=== PATIENT | female | born 1945 | race Caucasian/White ===

== ENCOUNTER 2021-06-19 12:47 | Inpatient (IN) | payer MEDICARE, BC ==
[2021-06-19] MEDS ORDERED: ONDANSETRON 4 MG/2 ML VIAL IVP STA (12:59)
[2021-06-19] MEDS ORDERED: HYDROmorphone 0.5 MG/0.5 ML SYRINGE IVP STA (12:59)
--- NOTE | 2021-06-19 14:01 | XR ---
EXAMINATION TYPE: XR chest 1V DATE OF EXAM: 06/19/2021 COMPARISON: NONE HISTORY: Pain after fall injury. TECHNIQUE: Single frontal view of the chest is obtained. FINDINGS: There is some chronic parenchymal change without suspicious focal air space opacity, pleur al effusion, or pneumothorax seen. The cardiac silhouette size is within normal limits. Overlying b ra strap. The osseous structures are intact. IMPRESSION: No acute process.
--- NOTE | 2021-06-19 14:08 | XR ---
EXAMINATION TYPE: XR Hip LT and AP Pelvis DATE OF EXAM: 06/19/2021 COMPARISON: NONE HISTORY: Trauma and pain TECHNIQUE: A single AP view of the pelvis is obtained. Two views of the left hip are obtained. FINDINGS: There is subcapital left femoral neck fracture suspected, there is foreshortening of the p roximal left femur on the frontal view, resulting varus deformity. No evident dislocation. IMPRESSION: Left hip fracture
[2021-06-19] MEDS ORDERED: NALOXONE 0.4 MG/ML 1 ML VIAL IV PRN (14:15)
[2021-06-19] MEDS ORDERED: ONDANSETRON 4 MG/2 ML VIAL IVP PRN (14:15)
--- NOTE | 2021-06-19 14:15 | ED ---
Fall HPI - General Chief Complaint: Fall Stated Complaint: Fall, hip injury Time Seen by Provider: 06/19/21 12:48 Source: patient, EMS, RN notes reviewed Mode of arrival: EMS Limitations: physical limitation - History of Present Illness Initial Comments: 75-year-old female presents emergency Department with chief complaint of left hip pain. Patient states she is going up steps slipped on the last step falling onto her left side. Patient went to left hip pain no head injury no loss conscious. Patient does not take any daily medications. Patient no loss conscious. Patient states that she is unable to bear weight on her left leg. Patient was given Toradol by EMS prior to arrival. - Related Data Allergies Allergy/AdvReac Type Severity Reaction Status Date / Time gentamicin Allergy Rash/Hives Verified 06/19/21 13:02 vancomycin Allergy Rash/Hives Verified 06/19/21 13:02 Review of Systems ROS Statement: Those systems with pertinent positive or pertinent negative responses have been documented in the HPI. ROS Other: All systems not noted in ROS Statement are negative. Past Medical History Past Medical History: Osteoarthritis (OA) Additional Past Medical History / Comment(s): Covid + 06/14/21 Past Surgical History: Appendectomy, Cholecystectomy, Hysterectomy Past Psychological History: No Psychological Hx Reported Smoking Status: Never smoker Past Alcohol Use History: None Reported Past Drug Use History: None Reported General Exam Limitations: no limitations General appearance: alert, in no apparent distress Head exam: Present: atraumatic, normocephalic, normal inspection Eye exam: Present: normal appearance, PERRL, EOMI. Absent: scleral icterus, conjunctival injection, periorbital swelling Respiratory exam: Present: normal lung sounds bilaterally. Absent: respiratory distress, wheezes, rales, rhonchi, stridor Cardiovascular Exam: Present: regular rate, normal rhythm, normal heart sounds. Absent: systolic murmur, diastolic murmur, rubs, gallop, clicks Extremities exam: Present: other (Left hip tenderness, tenderness ,pulses intact, external rotation shortening noted) Course Vital Signs 06/19/21 12:57 Temperature 98 F Pulse Rate 64 Respiratory 16 Rate Blood Pressure 202/86 O2 Sat by Pulse 99 Oximetry Medical Decision Making - Medical Decision Making X-ray shows evidence of left fracture patient will be admitted to Dr. Enriquez. surgical clearance was ordered. Disposition Clinical Impression: Fall, Subcapital fracture of left femur Disposition: ADMITTED IP TO THIS HOSP Condition: Fair Referrals: Francoise Whitlock MD [Primary Care Provider] - 1-2 days
[2021-06-19 15:20] LABS: Basophils % (A) 0 %; Eosinophils % (A) 0 %; HCT 44.2 % (34.0-46.0); HGB 14.2 gm/dL (11.4-16.0); Lymphocytes # (A) 0.8 k/uL (1.0-4.8); Lymphocytes % (A) 9 %; MCH 28.8 pg (25.0-35.0); MCHC 32.1 g/dL (31.0-37.0); MCV 89.8 fL (80.0-100.0); Mean Platelet Volume 9.5; Monocytes # (A) 0.4 k/uL (0-1.0); Monocytes % (A) 4 %; Neutrophils # (A) 8.3 k/uL (1.3-7.7); Neutrophils % (A) 87 %; Platelet Count 172 k/uL (150-450); RBC 4.92 m/uL (3.80-5.40); RDW 13.5 % (11.5-15.5); WBC 9.5 k/uL (3.8-10.6)
[2021-06-19 15:31] LABS: ALT 22 U/L (4-34); AST 31 U/L (14-36); African American GFR (CKD) >90 (>60 ml/min/1.73 sqM); Albumin 4.4 g/dL (3.5-5.0); Alkaline Phosphatase 131 U/L (38-126); Anion Gap 9 mmol/L; Blood Urea Nitrogen 16 mg/dL (7-17); Calcium 9.8 mg/dL (8.4-10.2); Carbon Dioxide 24 mmol/L (22-30); Chloride 104 mmol/L (98-107); Glucose 118 mg/dL (74-99); Non-African American GFR(CKD) >90 (>60 ml/min/1.73 sqM); Potassium 4.1 mmol/L (3.5-5.1); Sodium 137 mmol/L (137-145); Total Bilirubin 0.4 mg/dL (0.2-1.3); Total Protein 6.8 g/dL (6.3-8.2)
[2021-06-19 15:36] LABS: INR 0.9 (<1.2); Partial Thromboplastin Time 21.3 sec (22.0-30.0); Prothrombin Time 9.7 sec (9.0-12.0)
[2021-06-19 15:39] LABS: Appearance,Urine Clear (Clear); Bilirubin,Urine Negative (Negative); Blood,Urine Negative (Negative); Color,Urine Yellow; Glucose,Urine (UA) Negative (Negative); Ketones,Urine Negative (Negative); Leukocyte Esterase,Urine Negative (Negative); Nitrite,Urine Negative (Negative); Protein,Urine Trace (Negative); Specific Gravity,Urine 1.017 (1.001-1.035); Urobilinogen,Urine <2.0 mg/dL (<2.0)
[2021-06-19] MEDS: HYDROmorphone 0.5 MG/0.5 ML SYRINGE IVP PRN ×3 (15:40→22:48)
[2021-06-19] MEDS: SODIUM CHLORIDE 0.9% 1,000 ML IV SCH (18:25)
[2021-06-19] MEDS ORDERED: ALPRAZolam 0.25 MG TAB PO PRN (19:09)
[2021-06-19] MEDS ORDERED: TEMAZEPAM 15 MG CAP PO PRN (19:09)
--- NOTE | 2021-06-19 21:08 | CONS ---
CONSULTATION REASON FOR CONSULTATION: Advice regarding DJD and COVID-19 as well as medical clearance prior to surgery, requested by Orthopedic Surgery. HISTORY OF PRESENT ILLNESS: This 75-year-old woman with a past medical history of DJD, appendectomy, cholecystomy, being followed by Dr. david, was not feeling well last week. The patient's granddaughter had some sniffles and subsequently the patient had some upper respiratory symptoms. The patient took a COVID test last Thursday which was found to be positive, but the patient got better as far as symptoms are concerned, but today when the patient was going down the stairs the patient slipped and fell down and suffered a left hip fracture and was admitted for evaluation and treatment. There is no history of any fever, rigors or chills. No history of headache, loss of consciousness, seizures. The labs done on admission showed mild lymphocytopenia. Otherwise, glucose 118. The pulse ox was 96% on room air. A chest x-ray which was done and personally reviewed by me showed no evidence of acute pneumonia. Patient admitted for further evaluation and treatment. There is no history of any fever, rigor or chills at this time. The patient has apparently taken two doses of vaccine plus a booster dose also. PAST MEDICAL HISTORY: History of DJD, history of COVID-19, appendectomy, cholecystectomy. MEDICATIONS: Medications prior to admission include Aleve, vitamin B12, and Ashwagandha root extract. ALLERGIES: GENTAMICIN, VANCOMYCIN. FAMILY HISTORY: No history of heart disease or strokes in the family. SOCIAL HISTORY: No history of smoking. No history of alcohol intake. REVIEW OF SYSTEMS: ENT: No diminished hearing. No diminished vision. CARDIOVASCULAR SYSTEM: No angina, palpitations. RESPIRATORY SYSTEM: As mentioned earlier. GI: No nausea, vomiting, diarrhea. : No dysuria. NERVOUS SYSTEM: No numbness, weakness. ALLERGY/IMMUNOLOGY: No asthma or hay fever. MUSCULOSKELETAL: As mentioned earlier. HEMATOLOGY/ONCOLOGY: No history of anemia. ENDOCRINE: No history of diabetes or hypothyroidism. CONSTITUTIONAL: As mentioned earlier. DERMATOLOGY: Negative. RHEUMATOLOGY: Negative. PSYCHIATRY: As mentioned earlier. PHYSICAL EXAMINATION: Patient alert and oriented x3. Pulse 65, blood pressure 174/78, respiration 17, temperature 97.4, pulse ox 96% on room air. HEENT: Conjunctivae normal. Oral mucosa moist. NECK: No jugular venous distention. No carotid bruit. No lymph node enlargement. CARDIOVASCULAR: S1, S2 muffled. RESPIRATION: Breath sounds diminished at the bases. No rhonchi. No crackles. ABDOMEN: Soft, nontender. No mass palpable. LEGS: Status post left hip fracture. NERVOUS SYSTEM: Higher functions as mentioned earlier. Moves all 4 limbs. No focal motor or sensory deficit. LYMPHATICS: No lymph node palpable in neck, axillae or groin. SKIN: No ulcer, rash, bleeding. JOINTS: No active deforming arthropathy. LABS: CBC noted. Lymphocytes 0.8. APTT 21.3. Alkaline phosphatase 131. ASSESSMENT: 1. Status post left hip fracture and fall. 2. Recently diagnosed COVID-19 infection without any evidence of pneumonia or hypoxia. 3. Mild lymphocytopenia. 4. Elevated random glucose. 5. Hypertension. 6. History of degenerative joint disease. 7. History of appendectomy. 8. History of cholecystectomy. 9. FULL CODE. RECOMMENDATIONS AND DISCUSSION: In this 75-year-old woman who presented with multiple medical issues, at this time I recommend to continue the current medications, continue symptomatic treatment. Otherwise, pain management. Also recommend inflammatory markers of COVID-19. Currently the chest x-ray showed no evidence of pneumonia. The patient is not hypoxic either. The patient will be cleared for surgery at this time. I would also recommend DVT prophylaxis and continue to follow up with primary physician in the outpatient setting. Otherwise, we will follow the patient closely with you. Thank you, Dr. Enriquez, for letting us participate in the care of this patient. MMODL / IJN: [id number] / LICO
[2021-06-19] MEDS: amLODIPine 10 MG TAB PO SCH (22:45)
[2021-06-19] MEDS: ZINC SULFATE 220 MG CAP PO SCH (22:45)
[2021-06-19] MEDS: CHOLECALCIFEROL 25 MCG (1000 IU) TABLET PO SCH (22:45)
[2021-06-20] MEDS: HYDROmorphone 0.5 MG/0.5 ML SYRINGE IVP PRN ×7 (02:02→23:27)
[2021-06-20] MEDS: SODIUM CHLORIDE 0.9% 1,000 ML IV SCH ×3 (02:09→20:33)
[2021-06-20] MEDS: CHOLECALCIFEROL 25 MCG (1000 IU) TABLET PO SCH (08:24)
[2021-06-20] MEDS: HEPARIN SODIUM,PORCINE/PF 5,000 UNIT/0.5 ML SYRINGE SQ SCH ×2 (08:24→20:42)
[2021-06-20] MEDS: ZINC SULFATE 220 MG CAP PO SCH (08:24)
[2021-06-20] MEDS: amLODIPine 10 MG TAB PO SCH (08:24)
--- NOTE | 2021-06-20 09:18 | P.HPOR ---
History of Present Illness H&P Date: 06/20/21 Chief Complaint: Left hip pain This is a 75-year-old female who slipped on going up steps in her home yesterday, falling and sustaining injury to her left hip. On exam and x-ray in the emergency department she is found to have a femoral neck fracture. She was admitted to our service for surgical intervention. The patient did have a positive Covid test on 06/14/2021 and tested positive began in the emergency department yesterday. She is back sedated and has had her booster. She is relatively asymptomatic. She had lost sense of taste and smell which prompted her to get tested last week. She has no other complaints or concerns today. She denies head injury or loss of consciousness. Past Medical History Past Medical History: Osteoarthritis (OA) Additional Past Medical History / Comment(s): Covid + 06/14/21; Frequent falls History of Any Multi-Drug Resistant Organisms: None Reported Past Surgical History: Appendectomy, Cholecystectomy, Hysterectomy Past Anesthesia/Blood Transfusion Reactions: No Reported Reaction Past Psychological History: No Psychological Hx Reported Smoking Status: Never smoker Past Alcohol Use History: None Reported Past Drug Use History: None Reported Medications and Allergies Home Medications Medication Instructions Recorded Confirmed Type Airama Root Extract 300 mg PO HS PRN 06/19/21 06/19/21 History Cyanocobalamin (Vitamin B-12) 1,000 mcg PO HS 06/19/21 06/19/21 History [Vitamin B-12] Naproxen Sodium [Aleve] 220 mg PO BID PRN 06/19/21 06/19/21 History Allergies Allergy/AdvReac Type Severity Reaction Status Date / Time gentamicin Allergy Rash/Hives Verified 06/19/21 15:38 levofloxacin Allergy Rash/Hives Verified 06/20/21 05:56 vancomycin Allergy Rash/Hives Verified 06/19/21 15:38 Physical Examination This is a pleasant 75-year-old female in no acute distress. She is alert and oriented 3. Exam of the head neck reveal no obvious deformity. She has full cervical spine motion without difficulty or pain. Exam the upper extremities is unremarkable. She has full shoulder, elbow, wrist and finger motion bilaterally. Neurovascular status to the upper extremities is intact. Exam of the lower extremities reveals no obvious deformity. She has slight shortening to the left leg. She has full foot and ankle motion bilaterally. Neurovascular status to the lower extremities is intact. Results X-rays of the pelvis and left hip reveal a displaced femoral neck fracture. No other fractures identified. - Labs Labs: Abnormal Lab Results - Last 24 Hours (Table) 06/19/21 06/19/21 06/19/21 Range/Units 14:15 14:59 14:59 Neutrophils # 8.3 H (1.3-7.7) k/uL Lymphocytes # 0.8 L (1.0-4.8) k/uL APTT 21.3 L (22.0-30.0) sec D-Dimer (<0.60) mg/L FEU Glucose (74-99) mg/dL Alkaline Phosphatase (38-126) U/L Urine Protein (Negative) Coronavirus (PCR) Detected A (Not Detectd) 06/19/21 06/19/21 06/20/21 Range/Units 14:59 14:59 06:47 Neutrophils # (1.3-7.7) k/uL Lymphocytes # (1.0-4.8) k/uL APTT (22.0-30.0) sec D-Dimer 3.65 H (<0.60) mg/L FEU Glucose 118 H (74-99) mg/dL Alkaline Phosphatase 131 H (38-126) U/L Urine Protein Trace H (Negative) Coronavirus (PCR) (Not Detectd) H & H 06/19/21 Range/Units 14:59 Hgb 14.2 (11.4-16.0) gm/dL Hct 44.2 (34.0-46.0) % Coagulation 06/19/21 Range/Units 14:59 INR 0.9 (<1.2) Result Diagrams: 06/19/21 14:59 06/19/21 14:59 Assessment and Plan (1) Fall Current Visit: Yes Status: Acute Code(s): W19.XXXA - UNSPECIFIED FALL, INITIAL ENCOUNTER SNOMED Code(s): 5454681 (2) Subcapital fracture of left femur Current Visit: Yes Status: Acute Code(s): S72.012A - UNSP INTRACAPSULAR FRACTURE OF LEFT FEMUR, INIT FOR CLOS FX SNOMED Code(s): 943149115 Plan: The clinical and x-ray findings are discussed with the patient. It is recommended she undergo hemiarthroplasty of the left hip. The procedures discus sed in detail including the possible risks and outcomes. She may require inpatient rehab postoperatively. She is hoping to be able to go home to her son's house within a few days postop. We are planning surgery later this afternoon.
[2021-06-20 10:07] LABS: Basophils # (A) 0.02 X 10*3/uL (0.00-0.10); Basophils % (A) 0.3 %; Eosinophils # (A) 0.08 X 10*3/uL (0.04-0.35); Eosinophils % (A) 1.4 %; HCT 40.8 % (37.2-46.3); HGB 12.4 g/dL (12.0-15.0); Lymphocytes # (A) 1.06 X 10*3/uL (0.90-5.00); Lymphocytes % (A) 18.2 %; MCH 27.7 pg (27.0-32.0); MCHC 30.4 g/dL (32.0-37.0); MCV 91.3 fL (80.0-97.0); Mean Platelet Volume 12.8 fL (9.5-12.2); Monocytes # (A) 0.61 X 10*3/uL (0.20-1.00); Monocytes % (A) 10.5 %; Neutrophils # (A) 4.02 X 10*3/uL (1.80-7.70); Neutrophils % (A) 69.1 %; Platelet Count 152 X 10*3/uL (140-440); RBC 4.47 X 10*6/uL (4.10-5.20); RDW 13.6 % (11.5-14.5); WBC 5.82 X 10*3/uL (4.50-10.00)
[2021-06-20 12:21] LABS: African American GFR (CKD) 104.1 (60.0-200.0); Anion Gap 14.5 mmol/L (10.00-18.00); Blood Urea Nitrogen 12.6 mg/dL (9.0-27.0); Calcium 9.2 mg/dL (8.7-10.3); Carbon Dioxide 15.5 mmol/L (20.0-27.5); Non-African American GFR(CKD) 89.8 (60.0-200.0); Potassium 4.2 mmol/L (3.5-5.5)
--- NOTE | 2021-06-20 13:18 | US ---
EXAMINATION TYPE: US venous doppler duplex LE DATE OF EXAM: 06/20/2021 1:02 PM COMPARISON: NONE CLINICAL HISTORY: r/o dvt. Broken left hip with bilateral pain and swelling. SIDE PERFORMED: Bilateral TECHNIQUE: The lower extremity deep venous system is examined utilizing real time linear array sonog felicia with graded compression, doppler sonography and color-flow sonography. VESSELS IMAGED: Common Femoral Vein Deep Femoral Vein Greater Saphenous Vein * Femoral Vein Popliteal Vein Small Saphenous Vein * Proximal Calf Veins (* superficial vessels) Right Leg: Negative for DVT Left Leg: Negative for DVT Grayscale, color doppler, spectral doppler imaging performed of the deep veins of the bilateral lower extremities. There is normal flow, compressibility, vascular waveforms. IMPRESSION: No ultrasound evidence for acute DVT in either lower extremity.
--- NOTE | 2021-06-20 14:06 | CT ---
EXAMINATION TYPE: CT chest angio for PE DATE OF EXAM: 06/20/2021 COMPARISON: Chest x-ray from yesterday HISTORY: rule out pulmonary embolism. Shortness of breath. CT DLP: 247.3 mGycm. Automated Exposure Control for Dose Reduction was Utilized. CONTRAST: CTA scan of the thorax is performed with IV Contrast, patient injected with 100 mL of Isovue 370, pul monary embolism protocol. MIP Images are created on CT scanner and reviewed. FINDINGS: LUNGS: There is respiratory motion artifact making evaluation suboptimal particularly for subcentimet er nodules. Trace right greater than left pleural effusions. Posterior dependent atelectasis bilatera l lower lobes. No additional suspicious focal consolidation. Probable 7 mm pulmonary nodule posterior ly left lower lobe superior aspect axial image 68. CT follow-up in 6-12 months time is advised to fransisco ssess. Mild bibasilar linear scarring and/or atelectasis just above the diaphragms. No pneumothorax s een bilaterally. MEDIASTINUM: There is suboptimal study due to motion and Myah contrast in the aorta versus pulmonary arteries. Enlarged main pulmonary artery at 3.5 cm axial image 61 consistent with underlying pulmona ry artery hypertension. Ascending aortic aneurysm up to 4.0 cm axial image 61. Mild cardiomegaly. No convincing CT evidence for acute pulmonary embolism. Odod-yc-khjctvyt peripheral plaque in the descen ding thoracic aorta. There are no greater than 1 cm hilar or mediastinal lymph nodes. No pericardia l effusion is seen. Heterogeneous asymmetric prominent right thyroid lobe versus left side. Correlate clinically. OTHER: Small sized hiatal hernia. Underlying scoliotic curvature. Cholecystectomy clips noted on loca lizer. IMPRESSION: 1. Suboptimal study without CT evidence for acute pulmonary embolism. 2. Dependent atelectasis bilateral lower lobes. No suspicious focal consolidation. 3. Cardiomegaly with ascending aortic aneurysm and underlying pulmonary artery hypertension.
--- NOTE | 2021-06-20 16:24 | P.PN ---
Subjective Progress Note Date: 06/20/21 This is a 75-year-old female who was recently admitted with orthopedic services after slipping and falling and suffering a left hip fracture and is scheduled for surgery today. Patient had not been feeling well over the last week and took a Cobra test that was positive last week Thursday and denies having any symptoms. Lab work today shows a d-dimer that is elevated 3.65 and kidney functions are normal and will order a computed tomography scan of the chest to evaluate for PE and bilateral venous Dopplers. Labs: WBC is 5.82, hemoglobin is 12.4, platelet are 152, d-dimer is 3.65, sodium is 134, potassium 4.2, BUN 12.6, creatinine 0.6, LDH 396, CRP 1.00 Review of systems: Constitutional: no reports of fatigue, no reports of fever, or chills Cardiovascular: No reports of chest pain or palpitations Respiratory: No reports of shortness of breath or cough GI: No reports of nausea, vomiting, or diarrhea : No reports of dysuria or retention Neurovascular: Reports generalized weakness and left hip pain All medications have been reviewed Active Medications Hydrocodone Bitart/Acetaminophen (Hydrocodone/Apap 5-325mg 1 Each Tab) 1 each PO Q4HR PRN PRN Reason: Moderate Pain Alprazolam (Alprazolam 0.25 Mg Tab) 0.25 mg PO TID PRN PRN Reason: Anxiety Amlodipine Besylate (Amlodipine 10 Mg Tab) 10 mg PO DAILY [facility] Last Admin: 06/20/21 08:24 Dose: 10 mg Documented by: Cholecalciferol (Cholecalciferol 25 Mcg (1000 Iu) Tablet) 25 mcg PO DAILY [facility] Last Admin: 06/20/21 08:24 Dose: 25 mcg Documented by: Heparin Sodium (Porcine) (Heparin Sodium,Porcine/Pf 5,000 Unit/0.5 Ml Syringe) 5,000 unit SQ Q12HR [facility] Last Admin: 06/20/21 08:24 Dose: 5,000 unit Documented by: Hydromorphone HCl (Hydromorphone 0.5 Mg/0.5 Ml Syringe) 0.5 mg IVP Q3HR PRN PRN Reason: Moderate Pain Last Admin: 06/20/21 14:29 Dose: 0.5 mg Documented by: Sodium Chloride (Saline 0.9%) 1,000 mls @ 75 mls/hr IV .[id number] [facility] Last Admin: 06/20/21 02:09 Dose: 75 mls/hr Documented by: Naloxone HCl (Naloxone 0.4 Mg/Ml 1 Ml Vial) 0.2 mg IV Q2M PRN PRN Reason: Opioid Reversal Ondansetron HCl (Ondansetron 4 Mg/2 Ml Vial) 4 mg IVP Q8HR PRN PRN Reason: Nausea And Vomiting Temazepam (Temazepam 15 Mg Cap) 15 mg PO HS PRN PRN Reason: Insomnia Zinc Sulfate (Zinc Sulfate 220 Mg Cap) 220 mg PO DAILY [facility] Last Admin: 06/20/21 08:24 Dose: 220 mg Documented by: Physical exam: Gen: This is a 75-year-old female awake, alert and oriented 3, well-developed, well-nourished. Temp is 97.8 F, pulse is 69, respirations are 17, blood pressure is 133/73, oxygen saturation is 93% on room air HEENT: Head is atraumatic, normocephalic. Pupils equal, round. Sclerae is anicteric. NECK: Supple. No JVD. No lymphadenopathy. No thyromegaly. LUNGS: Diminished breath sounds bilaterally with no wheezing or rhonchi noted. No intercostal retractions. HEART: S1, S2 are muffled ABDOMEN: Soft. Distended. Bowel sounds are present. No masses. No tenderness. ostomy bag noted for drainage collection EXTREMITIES: No pedal edema. No calf tenderness. NEUROLOGICAL: Patient is awake, alert and oriented x3. Cranial nerves 2 through 12 are grossly intact. Assessment: Status post left hip fracture fall Recently diagnosed COVID-19 infection without any evidence of pneumonia or hypoxia Elevated d-dimer without evidence of PE on CT Mild lymphocytopenia Elevated random glucose Hypertension history of degenerative joint disease history of appendectomy history of cholecystectomy Full code Plan: Recommend to continue with current medications and management. She is scheduled for left hip surgery today with orthopedic services and is currently nothing by mouth. Patient had an elevated d-dimer and ordered CT of the chest along with bilateral venous Doppler studies which were negative for PE and Dopplers were negative for DVT of the lower extremities. Patient denies any shortness of breath and is currently on room air. Patient continues to have left hip pain and pain management per primary service. Recommend repeat labs and close monitoring and will await surgical report. PT/OT to evaluate the patient once stabilized from surgery. Will resume diet after surgery. Will add incentive spirometer and encouraged to use at least 10 times every hour while awake. Recommend continue with current medications. Repeat a.m. labs and continue to monitor closely. Further recommendations to follow based on the clinical course of the patient. Due to multiple complex medical issues, prognosis is guarded. Thank you for this consultation and will continue to follow during h ospitalization. Objective - Vital Signs Vital signs: Vital Signs Temp 98 F 06/20/21 13:47 Pulse 70 06/20/21 13:47 Resp 17 06/20/21 13:47 BP 128/64 06/20/21 13:47 Pulse Ox 95 06/20/21 13:47 Intake & Output 06/19/21 06/20/21 06/20/21 18:59 06:59 18:59 Intake Total 50 300 Output Total 500 Balance 50 -500 300 Weight 77.111 kg Intake: Oral 50 300 Output: Urine 500 Other: Voiding Method Indwelling Catheter Indwelling Catheter - Labs CBC & Chem 7: 06/20/21 06:47 06/20/21 06:47 Labs: Abnormal Lab Results - Last 24 Hours (Table) 06/19/21 06/19/21 06/19/21 Range/Units 14:15 14:59 14:59 MCHC (32.0-37.0) g/dL MPV (9.5-12.2) fL Neutrophils # 8.3 H (1.3-7.7) k/uL Lymphocytes # 0.8 L (1.0-4.8) k/uL APTT 21.3 L (22.0-30.0) sec D-Dimer (<0.60) mg/L FEU Sodium (135-145) mmol/L Carbon Dioxide (20.0-27.5) mmol/L BUN/Creatinine Ratio (12.00-20.00) Ratio Glucose (74-99) mg/dL Alkaline Phosphatase (38-126) U/L C-Reactive Protein (0.00-0.80) mg/dL Urine Protein (Negative) Coronavirus (PCR) Detected A (Not Detectd) 06/19/21 06/19/21 06/20/21 Range/Units 14:59 14:59 06:47 MCHC 30.4 L (32.0-37.0) g/dL MPV 12.8 H (9.5-12.2) fL Neutrophils # (1.3-7.7) k/uL Lymphocytes # (1.0-4.8) k/uL APTT (22.0-30.0) sec D-Dimer (<0.60) mg/L FEU Sodium (135-145) mmol/L Carbon Dioxide (20.0-27.5) mmol/L BUN/Creatinine Ratio (12.00-20.00) Ratio Glucose 118 H (74-99) mg/dL Alkaline Phosphatase 131 H (38-126) U/L C-Reactive Protein (0.00-0.80) mg/dL Urine Protein Trace H (Negative) Coronavirus (PCR) (Not Detectd) 06/20/21 06/20/21 Range/Units 06:47 06:47 MCHC (32.0-37.0) g/dL MPV (9.5-12.2) fL Neutrophils # (1.3-7.7) k/uL Lymphocytes # (1.0-4.8) k/uL APTT (22.0-30.0) sec D-Dimer 3.65 H (<0.60) mg/L FEU Sodium 134 L (135-145) mmol/L Carbon Dioxide 15.5 L (20.0-27.5) mmol/L BUN/Creatinine Ratio 21.00 H (12.00-20.00) Ratio Glucose (74-99) mg/dL Alkaline Phosphatase (38-126) U/L C-Reactive Protein 1.00 H (0.00-0.80) mg/dL Urine Protein (Negative) Coronavirus (PCR) (Not Detectd)
[2021-06-20] MEDS ORDERED: MIDAZOLAM 2 MG/2 ML VIAL ONE (16:58)
[2021-06-20] MEDS ORDERED: SODIUM CHLORIDE 0.9% 100 ML with ceFAZolin 2,000 MG IV ONE ×2 (16:58)
[2021-06-20] MEDS ORDERED: PROPOFOL 10 MG/ML 20 ML VIAL IV ONE (16:58)
[2021-06-20] MEDS ORDERED: IV FLUID CONTINUATION 1,000 ML IV ONE (16:58)
[2021-06-20] MEDS ORDERED: KETAMINE 10 MG/ML 20 ML VIAL ONE (16:58)
[2021-06-20] MEDS ORDERED: fentaNYL (PF) 50 MCG/ML 2 ML AMP ONE (16:58)
[2021-06-20] MEDS ORDERED: HYDROmorphone 0.5 MG/0.5 ML SYRINGE IVP PRN ×2 (17:01)
[2021-06-20] MEDS ORDERED: NALOXONE 0.4 MG/ML 1 ML VIAL IV PRN (17:01)
[2021-06-20] MEDS ORDERED: TEMAZEPAM 15 MG CAP PO PRN (17:01)
[2021-06-20] MEDS ORDERED: HYDROmorphone 0.2 MG/1 ML SYRINGE IVP PRN (17:01)
[2021-06-20] MEDS ORDERED: MAGNESIUM HYDROXIDE 2,400 MG/10 ML CUP PO PRN (17:01)
--- NOTE | 2021-06-20 18:36 | P.OP ---
Date of Procedure: 06/20/21 Procedure(s) Performed: PREOPERATIVE DIAGNOSIS: Left hip femoral neck fracture POSTOPERATIVE DIAGNOSIS: Left hip femoral neck fracture OPERATION: Left hip cemented unipolar hemiarthroplasty. ANESTHESIA: Spinal ESTIMATED BLOOD LOSS: 150 ml. SUPERINTENDENT OIL FIELD DRILLING: Francoise Macedo PA-C (assistance with: patient positioning, retraction, exposure, hemostasis, leg positioning, implantation, irrigation, closure, dressing) COMPLICATIONS: None apparent. COMPONENTS IMPLANTED: Emilia LDFx cemented femoral stem; unipolar femoral head; neck extension augments as needed. INDICATIONS: Mrs. Kothari is a relatively healthy 75 year old female with a history of falling and sustaining a femoral neck fracture. She is also Covid positive but has minimal symptoms involving loss of taste and smell without respiratory issues. I have recommended surgical treatment with a cemented unipolar hemiarthroplasty. I have discussed this procedure in detail and explained the potential risks and complications as being inclusive of, but not limited to: Bleeding, infection, scarring, discomfort, blood vessel and/or nerve damage, limb length inequality, gait disturbance, blood clot, pulmonary embolism, , and other risks. The consent form has been signed. PROCEDURE: After appropriate consent was obtained, the patient was taken to the operating room and placed in supine position. Spinal anesthetic was administered and after confirmation of adequate anesthesia, the patient was placed into the lateral decubitus position with the affected side up. Care was taken to make sure that all pressure points were adequately padded and a [place] hip positioner was utilized for positioning. The hip was prepped and draped in the usual aseptic fashion using a combination of Chloraprep and alcohol. [place] drape was used for the case and the patient received intravenous antibiotics. The incision was created directly over the greater trochanter and carried slightly posteriorly for a posterior approach to the hip. The incision was then deepened down to subcutaneous tissue and fascia gladis. Fascia gladis was split in line with the incision and split proximally along the fibers of the gluteus bassem. The underlying fibers of the muscle were teased apart using finger dissection and bleeding vessels were picked up and coagulated. Retractor was then placed posteriorly consisting of a blunt Bev. The short external rotators and capsule were exposed and good visualization of the attachment of the external rotators to the femur was established. The short external rotators and capsule were released using electrocautery from their femoral attachments. A hockey stick shaped incision was created in the capsule. Joint fluid and hemarthrosis was evacuated and the patient's hip was internally rotated to expose the fracture site. The femoral neck cut was created approximately 1 cm superior to the lesser trochanter using a reciprocating saw. The femoral head and neck fragment was removed and visualization and palpation of the acetabular vault showed intact hyaline cartilage with no bone exposure or significant degeneration. Attention was then directed back to the proximal femur. Retractors were placed around the proximal femur and box osteotome was used followed by canal finder and trochanteric reamer. Cylindrical reaming was performed. Progressive broaching was then performed starting with a #10 broach and progressing final size, in a position of 10-15 degrees anteversion. [place] anteversion was within 5 degrees of stem position. The final size broach had excellent fit and fill of the patient's metaphysis and diaphysis. Calcar planing was performed. Trial reduction was then performed starting with appropriately sized femoral head and various neck extensions to evaluate stability, limb length equality, and soft tissue tension. Once these parameters were satisfactory, the corresponding final components were then called for. Trial components were removed. The femoral canal was sized for the centralizer and cement plug. Once the cement plug had been inserted distal to the planned length of the femoral component, the canal was pulse lavaged and brushed to remove any unstable bone. It was then dried with a lap sponge. Cement was mixed under vacuum conditions to decrease porosity and inserted into a cement gun. Distal centralizer was placed onto the femoral component with a bit of cement. The cement was allowed to reach a slightly doughy consistency and then the canal was filled retrograde with the cement gun. Thumb pressurization was performed three times. The femoral component was then inserted with the previously determined degree of anteversion. Excess cement was removed before it hardened completely. The femoral head was then impacted onto the [place] taper. Blood and debris were removed from the acetabular socket and the hip was then reduced and checked for stability, limb length and soft tissue tension. These parameters were found to be satisfactory; the wound was then thoroughly irrigated with normal saline. Final hemostasis was obtained using electrocautery. Closure of the capsule was performed meticulously using #3 Vicryl suture. Four [id number] sutures were placed in the posterior capsule along with repair of the external rotators. The fascia gladis was then repaired using combination of #3 Vicryl suture in interrupted fashion and Quill and running fashion. 2-0 Vicryl suture was used for the subcutaneous tissues and 3-0 Quill for the skin. Dermabond or Steri-Strips were then applied. The patient tolerated the procedure well. There were no complications and the wound bed was dry and there was no need for drain placement. Sterile dressing wa s then applied and the patient was carefully removed from the operating room table, placed on the stretcher and was taken to the recovery room in stable condition. Sponge and needle counts were correct.
[2021-06-20] MEDS: ASPIRIN 81 MG PO SCH (20:43)
[2021-06-20] MEDS: SENNOSIDES-DOCUSATE SODIUM 1 EACH TAB PO SCH (20:52)
--- NOTE | 2021-06-20 21:35 | XR ---
PROCEDURE: XR Hip Limited LT - 3V DATE AND TIME: 06/20/2021 8:15 PM CLINICAL INDICATION: PHH; Status post hip surgery, assess surgical alignment TECHNIQUE: Department protocol COMPARISON: None FINDINGS: Single AP view obtained showing the prosthesis. No unexpected postoperative findings.. IMPRESSION: Postoperative AP view.
[2021-06-21] MEDS: HYDROmorphone 0.5 MG/0.5 ML SYRINGE IVP PRN (02:52)
[2021-06-21] MEDS: SODIUM CHLORIDE 0.9% 1,000 ML IV SCH ×4 (04:32→20:50)
[2021-06-21] MEDS: HYDROcodone/APAP 5-325MG 1 EACH TAB PO PRN ×3 (06:09→15:12)
[2021-06-21 06:34] LABS: Basophils % (A) 0 %; Eosinophils % (A) 0 %; HCT 37.8 % (34.0-46.0); HGB 12.4 gm/dL (11.4-16.0); Lymphocytes # (A) 0.7 k/uL (1.0-4.8); Lymphocytes % (A) 11 %; MCH 29.7 pg (25.0-35.0); MCHC 32.9 g/dL (31.0-37.0); MCV 90.2 fL (80.0-100.0); Monocytes # (A) 0.6 k/uL (0-1.0); Monocytes % (A) 9 %; Neutrophils # (A) 5.3 k/uL (1.3-7.7); Neutrophils % (A) 79 %; Platelet Count 165 k/uL (150-450); RBC 4.19 m/uL (3.80-5.40); RDW 13.7 % (11.5-15.5); WBC 6.8 k/uL (3.8-10.6)
[2021-06-21 06:42] LABS: African American GFR (CKD) >90 (>60 ml/min/1.73 sqM); Anion Gap 2 mmol/L; Blood Urea Nitrogen 12 mg/dL (7-17); Calcium 9.2 mg/dL (8.4-10.2); Carbon Dioxide 27 mmol/L (22-30); Chloride 106 mmol/L (98-107); Glucose 120 mg/dL (74-99); Non-African American GFR(CKD) >90 (>60 ml/min/1.73 sqM); Potassium 4.2 mmol/L (3.5-5.1); Sodium 135 mmol/L (137-145)
[2021-06-21] MEDS: ASPIRIN 81 MG PO SCH ×2 (09:33→20:20)
[2021-06-21] MEDS: ZINC SULFATE 220 MG CAP PO SCH (09:33)
[2021-06-21] MEDS: amLODIPine 10 MG TAB PO SCH (09:33)
[2021-06-21] MEDS: CHOLECALCIFEROL 25 MCG (1000 IU) TABLET PO SCH (09:33)
[2021-06-21] MEDS: HEPARIN SODIUM,PORCINE/PF 5,000 UNIT/0.5 ML SYRINGE SQ SCH ×2 (09:34→20:20)
[2021-06-21] MEDS ORDERED: fentaNYL (PF) 50 MCG/ML 2 ML AMP ONE (10:46)
[2021-06-21] MEDS ORDERED: ROCURONIUM 10 MG/ML (5 ML VIAL) IV ONE (10:46)
[2021-06-21] MEDS ORDERED: PROPOFOL 10 MG/ML 20 ML VIAL IV ONE (10:46)
[2021-06-21] MEDS ORDERED: CISATRACURIUM 2 MG/ML 5 ML VIAL IV ONE (10:46)
--- NOTE | 2021-06-21 11:58 | P.PN ---
Subjective Progress Note Date: 06/21/21 This patient is a 75-year-old female who is COVID positive, who is status-post left hip hemiarthroplasty on 06/20/[address] Enriquez. Today is post-operative day #1. The patient is seen and examined bedside. The patient has not yet been up with physical therapy. She is tolerating her diet well. She overall feels well this morning and has no specific complaints. Her dawson catheter is still in place. She states her pain is well-controlled in the left hip. She denies chest pain, shortness breath, nausea, vomiting. She denies numbness or tingling of the left lower extremity. Vital signs stable. Objective - Vital Signs Vital signs: Vital Signs Temp 98.1 F 06/21/21 10:07 Pulse 80 06/21/21 10:07 Resp 16 06/21/21 10:07 BP 138/66 06/21/21 10:07 Pulse Ox 91 L 06/21/21 10:07 Intake & Output 06/20/21 06/21/21 06/21/21 18:59 06:59 18:59 Intake Total 1200 Output Total 200 500 Balance 1000 -500 Intake: IV 800 Oral 400 Output: Urine 50 500 Estimated Blood Loss 150 Other: Voiding Method Indwelling Catheter Indwelling Catheter Indwelling Catheter # Voids 1 # Bowel Movements 0 - Exam On examination, the patient is sitting up in bed in no apparent distress. She is alert and oriented x3. On inspection of the left hip, there is a clean, dry, intact Optifoam dressing in place along the posterior hip. There is no bleeding or drainage through the dressing. There is mild swelling of the thigh, the thigh is soft and compressible. Patient has good strength and [id number] of the left ankle. Motor and sensory function is intact of the left lower extremity. The left lower extremity is warm and well perfused with brisk capillary refill distally. The calf is soft and nontender to palpation. - Labs CBC & Chem 7: 06/21/21 05:57 06/21/21 05:57 Labs: Abnormal Lab Results - Last 24 Hours (Table) 06/20/21 06/21/21 06/21/21 Range/Units 06:47 05:57 05:57 Lymphocytes # 0.7 L (1.0-4.8) k/uL Sodium 134 L 135 L (135-145) mmol/L Carbon Dioxide 15.5 L (20.0-27.5) mmol/L BUN/Creatinine Ratio 21.00 H (12.00-20.00) Ratio Glucose 120 H (74-99) mg/dL C-Reactive Protein 1.00 H (0.00-0.80) mg/dL Assessment and Plan Assessment: Status-post left hip hemiarthroplasty 06/20/21. Post-operative day #1. Plan: - Patient may weight-bear as tolerated on the operative leg. Up with assistance, for the walker. - Keep Optifoam dressing in place. - Physical therapy for gait and balance training. - Pain management as needed. - Aspirin 81 mg twice a day for DVT prophylaxis. - Patient is planning to discharge home with home health care, once cleared. Case management is following for discharge planning.
[2021-06-21] MEDS: SENNOSIDES-DOCUSATE SODIUM 1 EACH TAB PO SCH (20:20)
[2021-06-22] MEDS: HYDROcodone/APAP 5-325MG 1 EACH TAB PO PRN ×5 (00:01→22:49)
--- NOTE | 2021-06-22 01:17 | P.PN ---
Subjective Progress Note Date: 06/21/21 This is a 75-year-old female who was recently admitted with orthopedic services after slipping and falling and suffering a left hip fracture and is scheduled for surgery today. Patient had not been feeling well over the last week and took a Cobra test that was positive last week Thursday and denies having any symptoms. Lab work today shows a d-dimer that is elevated 3.65 and kidney functions are normal and will order a computed tomography scan of the chest to evaluate for PE and bilateral venous Dopplers. 06/21/2021 Patient is seen this morning and underwent left hip hemiarthroplasty post op day 1 with orthopedics following closely. Patient continued on 4L via NC and denies shortness of breath. Patient has incentive spirometer at the bedside and encouraged use at least 10 times every hour while awake. Patient tolerating diet with no nausea or vomiting noted. Patient continued on appropriate medications for covid and will contiue with heparin sub q. Patient to work with PT/OT therapy. Patient plans to arrange for home care in the outpatient setting and case management following. Labs: WBC is 6.8, hemoglobin is 12.4, platelet are 165, sodium is 135, potassium 4.2, BUN 12, creatinine 0.53 Review of systems: Constitutional: no reports of fatigue, no reports of fever, or chills Cardiovascular: No reports of chest pain or palpitations Respiratory: No reports of shortness of breath or cough GI: No reports of nausea, vomiting, or diarrhea : No reports of dysuria or retention Neurovascular: Reports generalized weakness and left hip pain All medications have been reviewed Active Medications Hydrocodone Bitart/Acetaminophen (Hydrocodone/Apap 5-325mg 1 Each Tab) 1 each PO Q4HR PRN PRN Reason: Moderate Pain Last Admin: 06/21/21 06:09 Dose: 1 each Documented by: Alprazolam (Alprazolam 0.25 Mg Tab) 0.25 mg PO TID PRN PRN Reason: Anxiety Amlodipine Besylate (Amlodipine 10 Mg Tab) 10 mg PO DAILY [facility] Last Admin: 06/21/21 09:33 Dose: 10 mg Documented by: Aspirin (Aspirin 81 Mg) 81 mg PO BID [facility] Last Admin: 06/21/21 09:33 Dose: 81 mg Documented by: Cholecalciferol (Cholecalciferol 25 Mcg (1000 Iu) Tablet) 25 mcg PO DAILY [facility] Last Admin: 06/21/21 09:33 Dose: 25 mcg Documented by: Heparin Sodium (Porcine) (Heparin Sodium,Porcine/Pf 5,000 Unit/0.5 Ml Syringe) 5,000 unit SQ Q12HR [facility] Last Admin: 06/21/21 09:34 Dose: 5,000 unit Documented by: Hydromorphone HCl (Hydromorphone 0.5 Mg/0.5 Ml Syringe) 0.5 mg IVP Q3HR PRN PRN Reason: Moderate Pain Last Admin: 06/21/21 02:52 Dose: 0.5 mg Documented by: Hydromorphone HCl (Hydromorphone 0.2 Mg/1 Ml Syringe) 0.2 mg IVP Q3HR PRN PRN Reason: Pain Scale 4 to 6 Hydromorphone HCl (Hydromorphone 0.5 Mg/0.5 Ml Syringe) 0.125 mg IVP Q3HR PRN PRN Reason: Pain Scale 1 to 3 Hydromorphone HCl (Hydromorphone 0.5 Mg/0.5 Ml Syringe) 0.5 mg IVP Q3HR PRN PRN Reason: Pain Scale 7 to 10 Sodium Chloride (Saline 0.9%) 1,000 mls @ 75 mls/hr IV .[id number] [facility] Last Admin: 06/20/21 20:33 Dose: Not Given Documented by: Sodium Chloride (Saline 0.9%) 1,000 mls @ 100 mls/hr IV .Q10H [facility] Last Admin: 06/21/21 04:32 Dose: Not Given Documented by: Magnesium Hydroxide (Magnesium Hydroxide 2,400 Mg/10 Ml Cup) 2,400 mg PO DAILY PRN PRN Reason: Constipation Naloxone HCl (Naloxone 0.4 Mg/Ml 1 Ml Vial) 0.2 mg IV Q2M PRN PRN Reason: Opioid Reversal Naloxone HCl (Naloxone 0.4 Mg/Ml 1 Ml Vial) 0.2 mg IV Q2M PRN PRN Reason: Opioid Reversal Ondansetron HCl (Ondansetron 4 Mg/2 Ml Vial) 4 mg IVP Q8HR PRN PRN Reason: Nausea And Vomiting Senna/Docusate Sodium (Sennosides-Docusate Sodium 1 Each Tab) 2 each PO HS [facility] Last Admin: 06/20/21 20:52 Dose: 2 each Documented by: Temazepam (Temazepam 15 Mg Cap) 15 mg PO HS PRN PRN Reason: Insomnia Temazepam (Temazepam 15 Mg Cap) 15 mg PO HS PRN PRN Reason: Insomnia Zinc Sulfate (Zinc Sulfate 220 Mg Cap) 220 mg PO DAILY [facility] Last Admin: 06/21/21 09:33 Dose: 220 mg Documented by: Physical exam: Gen: This is a 75-year-old female awake, alert and oriented 3, well-developed, well-nourished. Temp is 99.5 F, pulse is 78, respirations are 16, blood pressure is 150/71, oxygen saturation is 94% on 2 liters via nasal cannula HEENT: Head is atraumatic, normocephalic. Pupils equal, round. Sclerae is anicteric. NECK: Supple. No JVD. No lymphadenopathy. No thyromegaly. LUNGS: Diminished breath sounds bilaterally with no wheezing or rhonchi noted. No intercostal retractions. HEART: S1, S2 are muffled ABDOMEN: Soft. non-distended. Bowel sounds are sluggish. No masses. No tenderness. EXTREMITIES: No pedal edema. No calf tenderness. NEUROLOGICAL: Patient is awake, alert and oriented x3. Cranial nerves 2 through 12 are grossly intact. Assessment: Status post left hip fracture fall Status post left hip hemiarthroplasty Recently diagnosed COVID-19 infection without any evidence of pneumonia or hypoxia Elevated d-dimer without evidence of PE on CT Mild lymphocytopenia Elevated random glucose Hypertension history of degenerative joint disease history of appendectomy history of cholecystectomy GI prophylaxis DVT prophylaxis Full code Plan: Recommend to continue with current medications and management. Patient underwent left hip hemiarthroplasty post op day 1. PT/OT to evaluate the patient once stabilized from surgery. Patient tolerating diet. Encouraged incentive spirometer at least 10 times every hour while awake. Recommend to continue with current medications. Wean FI02 as tolerated. Repeat a.m. labs and continue to monitor closely. Further recommendations to follow based on the clinical course of the patient. Due to multiple complex medical issues, prognosis is guarded. Thank you for this consultation and will continue to follow during hospitalization. Objective - Vital Signs Vital signs: Vital Signs Temp 99.5 F 06/21/21 04:57 Pulse 78 06/21/21 04:57 Resp 17 06/20/21 20:43 BP 150/71 12/17/21 04:57 Pulse Ox 94 L 06/21/21 04:57 Intake & Output 06/20/21 06/21/21 06/21/21 18:59 06:59 18:59 Intake Total 1200 Output Total 200 500 Balance 1000 -500 Intake: IV 800 Oral 400 Output: Urine 50 500 Estimated Blood Loss 150 Other: Voiding Method Indwelling Catheter Indwelling Catheter # Voids 1 # Bowel Movements 0 - Labs CBC & Chem 7: 06/21/21 05:57 06/21/21 05:57 Labs: Abnormal Lab Results - Last 24 Hours (Table) 06/20/21 06/20/21 06/21/21 Range/Units 06:47 06:47 05:57 MCHC 30.4 L (32.0-37.0) g/dL MPV 12.8 H (9.5-12.2) fL Lymphocytes # 0.7 L (1.0-4.8) k/uL Sodium 134 L (135-145) mmol/L Carbon Dioxide 15.5 L (20.0-27.5) mmol/L BUN/Creatinine Ratio 21.00 H (12.00-20.00) Ratio Glucose (74-99) mg/dL C-Reactive Protein 1.00 H (0.00-0.80) mg/dL 06/21/21 Range/Units 05:57 MCHC (32.0-37.0) g/dL MPV (9.5-12.2) fL Lymphocytes # (1.0-4.8) k/uL Sodium 135 L (135-145) mmol/L Carbon Dioxide (20.0-27.5) mmol/L BUN/Creatinine Ratio (12.00-20.00) Ratio Glucose 120 H (74-99) mg/dL C-Reactive Protein (0.00-0.80) mg/dL
[2021-06-22] MEDS: SODIUM CHLORIDE 0.9% 1,000 ML IV SCH ×3 (01:30→10:33)
[2021-06-22 07:44] LABS: African American GFR (CKD) >90 (>60 ml/min/1.73 sqM); Anion Gap 6 mmol/L; Blood Urea Nitrogen 10 mg/dL (7-17); Calcium 9.1 mg/dL (8.4-10.2); Carbon Dioxide 23 mmol/L (22-30); Chloride 104 mmol/L (98-107); Glucose 112 mg/dL (74-99); Non-African American GFR(CKD) >90 (>60 ml/min/1.73 sqM); Potassium 3.5 mmol/L (3.5-5.1); Sodium 133 mmol/L (137-145)
[2021-06-22] MEDS: amLODIPine 10 MG TAB PO SCH (07:57)
[2021-06-22] MEDS: HEPARIN SODIUM,PORCINE/PF 5,000 UNIT/0.5 ML SYRINGE SQ SCH ×2 (07:57→21:14)
[2021-06-22] MEDS: ASPIRIN 81 MG PO SCH ×2 (07:57→21:14)
[2021-06-22] MEDS: CHOLECALCIFEROL 25 MCG (1000 IU) TABLET PO SCH (07:57)
[2021-06-22] MEDS: ZINC SULFATE 220 MG CAP PO SCH (07:58)
--- NOTE | 2021-06-22 12:48 | P.PN ---
Subjective Progress Note Date: 06/22/21 This patient is a 75-year-old female who is COVID positive, who is status-post left hip hemiarthroplasty on 06/20/[address] Enriquez. Today is post-operative day #2. The patient is seen and examined bedside. Patient is doing well this morning with no complaints. Left hip pain is well- controlled. Patient was up with physical therapy yesterday and is ambulating with a walker. Patient is tolerating her diet well. Her dawson is still in place. Patient denies chest pain, shortness of breath, nausea, vomiting. She denies numbness or tingling of the left lower extremity. Vital signs stable. Objective - Vital Signs Vital signs: Vital Signs Temp 98.7 F 06/22/21 05:44 Pulse 76 06/22/21 05:44 Resp 15 06/22/21 05:44 BP 148/62 06/22/21 05:44 Pulse Ox 94 L 06/22/21 05:44 Intake & Output 06/21/21 06/22/21 06/22/21 18:59 06:59 18:59 Output Total 600 300 Balance -600 -300 Output: Urine 600 300 Other: Voiding Method Indwelling Catheter Indwelling Catheter - Exam On examination, the patient is sitting up in bed in no apparent distress. She is alert and oriented x3. On inspection of the left hip, there is a clean, dry, intact Optifoam dressing in place along the posterior hip. There is no bleeding or drainage through the dressing. There is mild swelling of the thigh, the thigh is soft and compressible. Patient has good strength and [id number] of the left ankle. Motor and sensory function is intact of the left lower extremity. The left lower extremity is warm and well perfused with brisk capillary refill distally. The calf is soft and nontender to palpation. - Labs CBC & Chem 7: 06/21/21 05:57 06/22/21 06:08 Labs: Abnormal Lab Results - Last 24 Hours (Table) 06/22/21 Range/Units 06:08 Sodium 133 L (137-145) mmol/L Glucose 112 H (74-99) mg/dL Assessment and Plan Assessment: Status-post left hip hemiarthroplasty 06/20/21. Post-operative day #2. Plan: - Patient may weight-bear as tolerated on the operative leg. Up with assistance, for the walker. - Keep Optifoam dressing in place. - Physical therapy for gait and balance training. - Pain management as needed. - Aspirin 81 mg twice a day for DVT prophylaxis. - Medical management per internal medicine team. - Patient is planning to discharge home with home health care Thursday. Case management is following for discharge planning.
[2021-06-22] MEDS: SENNOSIDES-DOCUSATE SODIUM 1 EACH TAB PO SCH (21:14)
--- NOTE | 2021-06-22 23:08 | P.PN ---
Subjective Progress Note Date: 06/22/21 This is a 75-year-old female who was recently admitted with orthopedic services after slipping and falling and suffering a left hip fracture and is scheduled for surgery today. Patient had not been feeling well over the last week and took a Cobra test that was positive last week Thursday and denies having any symptoms. Lab work today shows a d-dimer that is elevated 3.65 and kidney functions are normal and will order a computed tomography scan of the chest to evaluate for PE and bilateral venous Dopplers. 06/21/2021 Patient is seen this morning and underwent left hip hemiarthroplasty post op day 1 with orthopedics following closely. Patient continued on 4L via NC and denies shortness of breath. Patient has incentive spirometer at the bedside and encouraged use at least 10 times every hour while awake. Patient tolerating diet with no nausea or vomiting noted. Patient continued on appropriate medications for covid and will contiue with heparin sub q. Patient to work with PT/OT therapy. Patient plans to arrange for home care in the outpatient setting and case management following. 06/22/2021 She is evaluated this morning status post left hip hemiarthroplasty with orthopedics and is being closely monitored. Patient is also recently diagnosed with Covid although not experiencing any respiratory symptoms. Patient is currently 94% oxygen saturation on room air. Patient to work with physical therapy and evaluate with possible Homecare in the outpatient setting. Patient does have incentive spirometer at the bedside and encourage the patient to continue using at least 10 times every hour while awake and continued use in the outpatient setting while at home. Encouraged increased activity as tolerated. She denies chest pain, palpitations, or shortness of breath. Patient is a febrile. Patient is tolerating diet with no reports of nausea or vomiting noted. Patient to have an indwelling Dawson catheter removed and monitor for retention. Patient is tolerating diet and will discontinue IV fluids. BMP today is within normal limits. Potassium is 3.5. Labs: Sodium is 133, potassium is 3.5, BUN is 10, creatinine is 0.5 to, calcium is 9.1 Review of systems: Constitutional: no reports of fatigue, no reports of fever, or chills Cardiovascular: No reports of chest pain or palpitations Respiratory: No reports of shortness of breath or cough GI: No reports of nausea, vomiting, or diarrhea : No reports of dysuria or retention Neurovascular: Reports generalized weakness and left hip pain All medications have been reviewed Active Medications Hydrocodone Bitart/Acetaminophen (Hydrocodone/Apap 5-325mg 1 Each Tab) 1 each PO Q4HR PRN PRN Reason: Moderate Pain Last Admin: 06/22/21 22:49 Dose: 1 each Documented by: Alprazolam (Alprazolam 0.25 Mg Tab) 0.25 mg PO TID PRN PRN Reason: Anxiety Amlodipine Besylate (Amlodipine 10 Mg Tab) 10 mg PO DAILY [facility] Last Admin: 06/22/21 07:57 Dose: 10 mg Documented by: Aspirin (Aspirin 81 Mg) 81 mg PO BID [facility] Last Admin: 06/22/21 21:14 Dose: 81 mg Documented by: Cholecalciferol (Cholecalciferol 25 Mcg (1000 Iu) Tablet) 25 mcg PO DAILY [facility] Last Admin: 06/22/21 07:57 Dose: 25 mcg Documented by: Heparin Sodium (Porcine) (Heparin Sodium,Porcine/Pf 5,000 Unit/0.5 Ml Syringe) 5,000 unit SQ Q12HR [facility] Last Admin: 06/22/21 21:14 Dose: 5,000 unit Documented by: Hydromorphone HCl (Hydromorphone 0.5 Mg/0.5 Ml Syringe) 0.5 mg IVP Q3HR PRN PRN Reason: Moderate Pain Last Admin: 06/21/21 02:52 Dose: 0.5 mg Documented by: Hydromorphone HCl (Hydromorphone 0.2 Mg/1 Ml Syringe) 0.2 mg IVP Q3HR PRN PRN Reason: Pain Scale 4 to 6 Hydromorphone HCl (Hydromorphone 0.5 Mg/0.5 Ml Syringe) 0.125 mg IVP Q3HR PRN PRN Reason: Pain Scale 1 to 3 Hydromorphone HCl (Hydromorphone 0.5 Mg/0.5 Ml Syringe) 0.5 mg IVP Q3HR PRN PRN Reason: Pain Scale 7 to 10 Magnesium Hydroxide (Magnesium Hydroxide 2,400 Mg/10 Ml Cup) 2,400 mg PO DAILY PRN PRN Reason: Constipation Naloxone HCl (Naloxone 0.4 Mg/Ml 1 Ml Vial) 0.2 mg IV Q2M PRN PRN Reason: Opioid Reversal Naloxone HCl (Naloxone 0.4 Mg/Ml 1 Ml Vial) 0.2 mg IV Q2M PRN PRN Reason: Opioid Reversal Ondansetron HCl (Ondansetron 4 Mg/2 Ml Vial) 4 mg IVP Q8HR PRN PRN Reason: Nausea And Vomiting Senna/Docusate Sodium (Sennosides-Docusate Sodium 1 Each Tab) 2 each PO HS [facility] Last Admin: 06/22/21 21:14 Dose: 2 each Documented by: Temazepam (Temazepam 15 Mg Cap) 15 mg PO HS PRN PRN Reason: Insomnia Temazepam (Temazepam 15 Mg Cap) 15 mg PO HS PRN PRN Reason: Insomnia Zinc Sulfate (Zinc Sulfate 220 Mg Cap) 220 mg PO DAILY [facility] Last Admin: 06/22/21 07:58 Dose: 220 mg Documented by: Physical exam: Gen: This is a 75-year-old female awake, alert and oriented 3, well-developed, well-nourished. Temp is 98.7 F, pulse is 76, respirations are 15, blood pressure is 148/62, oxygen saturation is 94% on room air HEENT: Head is atraumatic, normocephalic. Pupils equal, round. Sclerae is anicteric. NECK: Supple. No JVD. No lymphadenopathy. No thyromegaly. LUNGS: Diminished breath sounds bilaterally with no wheezing or rhonchi noted. No intercostal retractions. HEART: S1, S2 are muffled ABDOMEN: Soft. non-distended. Bowel sounds are sluggish. No masses. No tenderness. EXTREMITIES: No pedal edema. No calf tenderness. Left hip surgical site dressing is dry and intact NEUROLOGICAL: Patient is awake, alert and oriented x3. Cranial nerves 2 through 12 are grossly intact. Assessment: Status post left hip fracture fall Status post left hip hemiarthroplasty Recently diagnosed COVID-19 infection without any evidence of pneumonia or hypoxia Elevated d-dimer without evidence of PE on CT Mild lymphocytopenia Elevated random glucose Hypertension history of degenerative joint disease history of appendectomy history of cholecystectomy GI prophylaxis DVT prophylaxis Full code Plan: Recommend to continue with current medications and management. Patient underwent left hip hemiarthroplasty post op day 1. PT/OT to evaluate the patient once stabilized from surgery. Patient tolerating diet. Encouraged incentive spirometer at least 10 times every hour while awake. Recommend to continue with current medications. Will discontinue IV fluids. Recommend to discontinue dawson. Repeat a.m. labs and continue to monitor closely. Further recommendations to follow based on the clinical course of the patient. Due to multiple complex medical issues, prognosis is guarded. Thank you for this consultation and will continue to follow during hospitalization. Objective - Vital Signs Vital signs: Vital Signs Temp 98.7 F 06/22/21 05:44 Pulse 76 06/22/21 05:44 Resp 15 06/22/21 05:44 BP 148/62 06/22/21 05:44 Pulse Ox 94 L 06/22/21 05:44 Intake & Output 06/21/21 06/22/21 06/22/21 18:59 06:59 18:59 Output Total 600 300 Balance -600 -300 Output: Urine 600 300 Other: Voiding Method Indwelling Catheter Indwelling Catheter - Labs CBC & Chem 7: 06/21/21 05:57 06/22/21 06:08 Labs: Abnormal Lab Results - Last 24 Hours (Table) 06/22/21 Range/Units 06:08 Sodium 133 L (137-145) mmol/L Glucose 112 H (74-99) mg/dL
[2021-06-23] MEDS: HYDROcodone/APAP 5-325MG 1 EACH TAB PO PRN ×3 (04:28→19:14)
[2021-06-23] MEDS: ASPIRIN 81 MG PO SCH ×2 (07:40→21:30)
[2021-06-23] MEDS: amLODIPine 10 MG TAB PO SCH (07:40)
[2021-06-23] MEDS: CHOLECALCIFEROL 25 MCG (1000 IU) TABLET PO SCH (07:40)
[2021-06-23] MEDS: HEPARIN SODIUM,PORCINE/PF 5,000 UNIT/0.5 ML SYRINGE SQ SCH ×2 (07:40→21:30)
[2021-06-23] MEDS: ZINC SULFATE 220 MG CAP PO SCH (07:40)
[2021-06-23 10:04] LABS: Basophils # (A) 0.02 X 10*3/uL (0.00-0.10); Basophils % (A) 0.3 %; Eosinophils % (A) 1.7 %; HCT 30.7 % (37.2-46.3); HGB 9.8 g/dL (12.0-15.0); Lymphocytes # (A) 0.91 X 10*3/uL (0.90-5.00); Lymphocytes % (A) 15.4 %; MCH 28.3 pg (27.0-32.0); MCHC 31.9 g/dL (32.0-37.0); MCV 88.7 fL (80.0-97.0); Mean Platelet Volume 12.6 fL (9.5-12.2); Monocytes # (A) 0.64 X 10*3/uL (0.20-1.00); Monocytes % (A) 10.8 %; Neutrophils # (A) 4.17 X 10*3/uL (1.80-7.70); Neutrophils % (A) 70.4 %; Platelet Count 163 X 10*3/uL (140-440); RBC 3.46 X 10*6/uL (4.10-5.20); WBC 5.92 X 10*3/uL (4.50-10.00)
--- NOTE | 2021-06-23 10:51 | P.PN ---
Subjective Progress Note Date: 06/23/21 This patient is a 75-year-old female who is COVID positive, who is status-post left hip hemiarthroplasty on 06/20/[address] Enriquez. Today is post-operative day #3. The patient is seen and examined bedside. Patient continues to do well. She was up yesterday ambulating with her walker in the room. She describes minimal pain in the left hip. She is tolerating her diet well. She has not yet had a bowel movement postoperatively, although she denies abdominal pain. She denies chest pain, shortness breath, nausea, vomiting, fevers, chills. She denies any new numbness or tingling of the left lower extremity. Vital signs stable. Objective - Vital Signs Vital signs: Vital Signs Temp 98.1 F 06/23/21 05:45 Pulse 76 06/23/21 05:45 Resp 17 06/23/21 05:45 BP 125/71 06/23/21 05:45 Pulse Ox 94 L 06/23/21 05:45 Intake & Output 06/22/21 06/23/21 06/23/21 18:59 06:59 18:59 Intake Total 236 Output Total 600 775 Balance -364 -775 Intake: Oral 236 Output: Urine 600 775 Other: Voiding Method Indwelling Catheter # Bowel Movements 0 - Exam On examination, the patient is sitting up in bed in no apparent distress. She is alert and oriented x3. On inspection of the left hip, there is a clean, dry, intact Optifoam dressing in place along the posterior hip. There is no bleeding or drainage through the dressing. There is mild swelling of the thigh, the thigh is soft and compressible. Patient has good strength and [id number] of the left ankle and toes. Motor and sensory function is intact of the left lower extremity. Dorsalis pedis pulse +2. The left lower extremity is warm and well perfused with brisk capillary refill distally. The calf is soft and nontender to palpation. - Labs CBC & Chem 7: 06/23/21 05:48 06/22/21 06:08 Labs: Abnormal Lab Results - Last 24 Hours (Table) 06/23/21 Range/Units 05:48 RBC 3.46 L (4.10-5.20) X 10*6/uL Hgb 9.8 L (12.0-15.0) g/dL Hct 30.7 L (37.2-46.3) % MCHC 31.9 L (32.0-37.0) g/dL MPV 12.6 H (9.5-12.2) fL Immature Gran # 0.08 H (0.00-0.04) X 10*3/uL Assessment and Plan Assessment: Status-post left hip hemiarthroplasty 06/20/21. Post-operative day #3. Plan: - Patient may weight-bear as tolerated on the operative leg. Up with assistance, for the walker. - Keep Optifoam dressing in place. - Physical therapy for gait and balance training. - Pain management as needed. - Aspirin 81 mg twice a day for DVT prophylaxis. - Medical management per internal medicine team. - Patient is planning to discharge to her son's house with home health care Thursday. Case management is following for discharge planning.
[2021-06-23] MEDS: SENNOSIDES-DOCUSATE SODIUM 1 EACH TAB PO SCH (21:30)
[2021-06-24] MEDS: HYDROcodone/APAP 5-325MG 1 EACH TAB PO PRN ×2 (02:59→09:44)
--- NOTE | 2021-06-24 04:01 | P.PN ---
Subjective Progress Note Date: 06/23/21 This is a 75-year-old female who was recently admitted with orthopedic services after slipping and falling and suffering a left hip fracture and is scheduled for surgery today. Patient had not been feeling well over the last week and took a Cobra test that was positive last week Thursday and denies having any symptoms. Lab work today shows a d-dimer that is elevated 3.65 and kidney functions are normal and will order a computed tomography scan of the chest to evaluate for PE and bilateral venous Dopplers. 06/21/2021 Patient is seen this morning and underwent left hip hemiarthroplasty post op day 1 with orthopedics following closely. Patient continued on 4L via NC and denies shortness of breath. Patient has incentive spirometer at the bedside and encouraged use at least 10 times every hour while awake. Patient tolerating diet with no nausea or vomiting noted. Patient continued on appropriate medications for covid and will contiue with heparin sub q. Patient to work with PT/OT therapy. Patient plans to arrange for home care in the outpatient setting and case management following. 06/22/2021 She is evaluated this morning status post left hip hemiarthroplasty with orthopedics and is being closely monitored. Patient is also recently diagnosed with Covid although not experiencing any respiratory symptoms. Patient is currently 94% oxygen saturation on room air. Patient to work with physical therapy and evaluate with possible Homecare in the outpatient setting. Patient does have incentive spirometer at the bedside and encourage the patient to continue using at least 10 times every hour while awake and continued use in the outpatient setting while at home. Encouraged increased activity as tolerated. She denies chest pain, palpitations, or shortness of breath. Patient is a febrile. Patient is tolerating diet with no reports of nausea or vomiting noted. Patient to have an indwelling Dawson catheter removed and monitor for retention. Patient is tolerating diet and will discontinue IV fluids. BMP today is within normal limits. Potassium is 3.5. 06/23/2021 She is seen this morning currently sitting up in the chair with orthopedics following closely. Patient has been getting up with staff and will discontinue indwelling dawson catheter. Patient is on room air and denies any shortness of breath. Occasional dry cough which she states has had and is nothing new. Kelvin vuong to work with physical therapy and being arranged for home care on discharge. Labs: WBC is 5.92, hemoglobin 9.8, platelets 163 Review of systems: Constitutional: no reports of fatigue, no reports of fever, or chills Cardiovascular: No reports of chest pain or palpitations Respiratory: No reports of shortness of breath or cough GI: No reports of nausea, vomiting, or diarrhea : No reports of dysuria or retention Neurovascular: Reports generalized weakness and left hip pain, although less intense All medications have been reviewed Active Medications Hydrocodone Bitart/Acetaminophen (Hydrocodone/Apap 5-325mg 1 Each Tab) 1 each PO Q4HR PRN PRN Reason: Moderate Pain Last Admin: 06/23/21 11:53 Dose: 1 each Documented by: Alprazolam (Alprazolam 0.25 Mg Tab) 0.25 mg PO TID PRN PRN Reason: Anxiety Amlodipine Besylate (Amlodipine 10 Mg Tab) 10 mg PO DAILY [facility] Last Admin: 06/23/21 07:40 Dose: 10 mg Documented by: Aspirin (Aspirin 81 Mg) 81 mg PO BID [facility] Last Admin: 06/23/21 07:40 Dose: 81 mg Documented by: Cholecalciferol (Cholecalciferol 25 Mcg (1000 Iu) Tablet) 25 mcg PO DAILY [facility] Last Admin: 06/23/21 07:40 Dose: 25 mcg Documented by: Heparin Sodium (Porcine) (Heparin Sodium,Porcine/Pf 5,000 Unit/0.5 Ml Syringe) 5,000 unit SQ Q12HR [facility] Last Admin: 06/23/21 07:40 Dose: 5,000 unit Documented by: Hydromorphone HCl (Hydromorphone 0.5 Mg/0.5 Ml Syringe) 0.5 mg IVP Q3HR PRN PRN Reason: Moderate Pain Last Admin: 06/21/21 02:52 Dose: 0.5 mg Documented by: Hydromorphone HCl (Hydromorphone 0.2 Mg/1 Ml Syringe) 0.2 mg IVP Q3HR PRN PRN Reason: Pain Scale 4 to 6 Hydromorphone HCl (Hydromorphone 0.5 Mg/0.5 Ml Syringe) 0.125 mg IVP Q3HR PRN PRN Reason: Pain Scale 1 to 3 Hydromorphone HCl (Hydromorphone 0.5 Mg/0.5 Ml Syringe) 0.5 mg IVP Q3HR PRN PRN Reason: Pain Scale 7 to 10 Magnesium Hydroxide (Magnesium Hydroxide 2,400 Mg/10 Ml Cup) 2,400 mg PO DAILY PRN PRN Reason: Constipation Naloxone HCl (Naloxone 0.4 Mg/Ml 1 Ml Vial) 0.2 mg IV Q2M PRN PRN Reason: Opioid Reversal Naloxone HCl (Naloxone 0.4 Mg/Ml 1 Ml Vial) 0.2 mg IV Q2M PRN PRN Reason: Opioid Reversal Ondansetron HCl (Ondansetron 4 Mg/2 Ml Vial) 4 mg IVP Q8HR PRN PRN Reason: Nausea And Vomiting Senna/Docusate Sodium (Sennosides-Docusate Sodium 1 Each Tab) 2 each PO HS [facility] Last Admin: 06/22/21 21:14 Dose: 2 each Documented by: Temazepam (Temazepam 15 Mg Cap) 15 mg PO HS PRN PRN Reason: Insomnia Temazepam (Temazepam 15 Mg Cap) 15 mg PO HS PRN PRN Reason: Insomnia Zinc Sulfate (Zinc Sulfate 220 Mg Cap) 220 mg PO DAILY [facility] Last Admin: 06/23/21 07:40 Dose: 220 mg Documented by: Physical exam: Gen: This is a 75-year-old female awake, alert and oriented 3, well-developed, well-nourished. Temp is 97.9 F, pulse is 83. respirations are 18, blood pressure is 119/71, oxygen saturation is 95% on room air HEENT: Head is atraumatic, normocephalic. Pupils equal, round. Sclerae is anicteric. NECK: Supple. No JVD. No lymphadenopathy. No thyromegaly. LUNGS: Diminished breath sounds bilaterally with no wheezing or rhonchi noted. No intercostal retractions. HEART: S1, S2 are muffled ABDOMEN: Soft. non-distended. Bowel sounds present. No masses. No tenderness. EXTREMITIES: No pedal edema. No calf tenderness. Left hip surgical site dressing is dry and intact NEUROLOGICAL: Patient is awake, alert and oriented x3. Cranial nerves 2 through 12 are grossly intact. Assessment: Status post left hip fracture fall Status post left hip hemiarthroplasty Recently diagnosed COVID-19 infection without any evidence of pneumonia or hypoxia Elevated d-dimer without evidence of PE on CT Mild lymphocytopenia Elevated random glucose Hypertension history of degenerative joint disease history of appendectomy history of cholecystectomy GI prophylaxis DVT prophylaxis Full code Plan: Recommend to continue with current medications and management. Patient underwent left hip hemiarthroplasty. PT/OT to evaluate the patient . Patient tolerating diet. Encouraged incentive spirometer at least 10 times every hour while awake. Recommend to continue with current medications. discontinue dawson and monitor for retention. Further recommendations to follow based on the clinical course of the patient. Due to multiple complex medical issues, prognosis is guarded. Thank you for this consultation and will continue to follow during hospitalization. Possible discharge in 24 hours. Objective - Vital Signs Vital signs: Vital Signs Temp 98.1 F 06/23/21 05:45 Pulse 76 06/23/21 05:45 Resp 17 06/23/21 05:45 BP 125/71 06/23/21 05:45 Pulse Ox 94 L 06/23/21 05:45 Intake & Output 06/22/21 06/23/21 06/23/21 18:59 06:59 18:59 Intake Total 236 Output Total 600 775 Balance -364 -775 Intake: Oral 236 Output: Urine 600 775 Other: Voiding Method Indwelling Catheter # Bowel Movements 0 - Labs CBC & Chem 7: 06/23/21 05:48 06/22/21 06:08
[2021-06-24 05:35] VITALS: RESP 18
[2021-06-24] MEDS: HEPARIN SODIUM,PORCINE/PF 5,000 UNIT/0.5 ML SYRINGE SQ SCH (09:43)
[2021-06-24] MEDS: amLODIPine 10 MG TAB PO SCH (09:44)
[2021-06-24] MEDS: CHOLECALCIFEROL 25 MCG (1000 IU) TABLET PO SCH (09:44)
[2021-06-24] MEDS: ZINC SULFATE 220 MG CAP PO SCH (09:44)
[2021-06-24] MEDS: ASPIRIN 81 MG PO SCH (09:44)
[2021-06-24 10:33] VITALS: BP 135/74; PULSE 83; TEMP 98.5
--- NOTE | 2021-06-24 12:58 | P.DS ---
Providers Date of admission: 06/19/21 15:02 Expected date of discharge: 06/24/21 Attending physician: Curtis Enriquez Consults: 06/19/21 14:17 Consult Physician Urgent Consulting Provider: Papo Craft Consult Reason/Comments: Surgical Clearance Do you want consulting provider notified?: Yes Primary care physician: Francoise Whitlock MD - Discharge Diagnosis(es) (1) Fall Current Visit: Yes Status: Acute (2) Subcapital fracture of left femur Current Visit: Yes Status: Acute Hospital Course: This is a 75-year-old female who presented on 06/19/2021 after falling and sustaining injury to the left hip. On exam and x-ray in the emergency department she was found to have a hip fracture. The pt is admitted to our service for surgical intervention and care. The patient is taken to surgery for hemiarthroplasty of the right hip. The pro cedure is performed without complication or sequelae. The patient is doing well postoperatively. Vital signs are stable on postop day #3. There are no new complaints or concerns. The patient is discharged to home with her son today. Please refer to the [facility] rec for accurate list of medications. Patient Condition at Discharge: Fair Plan - Discharge Summary Discharge Rx Participant: Yes New Discharge Prescriptions: New Aspirin [Adult Low Dose Aspirin EC] 81 mg PO BID #1 tab HYDROcodone/APAP 5-325MG [[place] 5-325] 1 - 2 tab PO Q6HR PRN #32 tab PRN Reason: Pain No Action Cyanocobalamin (Vitamin B-12) [Vitamin B-12] 1,000 mcg PO HS Ashwagandha Root Extract 300 mg PO HS PRN PRN Reason: Insomnia Naproxen Sodium [Aleve] 220 mg PO BID PRN PRN Reason: Pain Discharge Medication List Ashwagandha Root Extract 300 mg PO HS PRN 06/19/21 [History] Cyanocobalamin (Vitamin B-12) [Vitamin B-12] 1,000 mcg PO HS 06/19/21 [History] Naproxen Sodium [Aleve] 220 mg PO BID PRN 06/19/21 [History] Aspirin [Adult Low Dose Aspirin EC] 81 mg PO BID #1 tab 06/24/21 [Rx] HYDROcodone/APAP 5-325MG [[place] 5-325] 1 - 2 tab PO Q6HR PRN #32 tab 06/24/21 [Rx] Follow up Appointment(s)/Referral(s): Francoise Whitlock MD [Primary Care Provider] - 1-2 days [facility], [NON-STAFF] - ([facility] will call you to schedule your in home nursing, physical therapy, and occupational therapy visits. ) Francoise Macedo PAC [PHYSICIAN DIETIST] - 3 Weeks Activity/Diet/Wound Care/Special Instructions: A bear weight as tolerated with walker. May shower. Keep dressing intact 7 days, may be removed by home care nurse. Discharge Disposition: HOME WITH HOME HEALTH SERVICES
--- NOTE | 2021-06-25 00:27 | P.PN ---
Subjective Progress Note Date: 06/24/21 This is a 75-year-old female who was recently admitted with orthopedic services after slipping and falling and suffering a left hip fracture and is scheduled for surgery today. Patient had not been feeling well over the last week and took a Cobra test that was positive last week Thursday and denies having any symptoms. Lab work today shows a d-dimer that is elevated 3.65 and kidney functions are normal and will order a computed tomography scan of the chest to evaluate for PE and bilateral venous Dopplers. 06/21/2021 Patient is seen this morning and underwent left hip hemiarthroplasty post op day 1 with orthopedics following closely. Patient continued on 4L via NC and denies shortness of breath. Patient has incentive spirometer at the bedside and encouraged use at least 10 times every hour while awake. Patient tolerating diet with no nausea or vomiting noted. Patient continued on appropriate medications for covid and will contiue with heparin sub q. Patient to work with PT/OT therapy. Patient plans to arrange for home care in the outpatient setting and case management following. 06/22/2021 She is evaluated this morning status post left hip hemiarthroplasty with orthopedics and is being closely monitored. Patient is also recently diagnosed with Covid although not experiencing any respiratory symptoms. Patient is currently 94% oxygen saturation on room air. Patient to work with physical therapy and evaluate with possible Homecare in the outpatient setting. Patient does have incentive spirometer at the bedside and encourage the patient to continue using at least 10 times every hour while awake and continued use in the outpatient setting while at home. Encouraged increased activity as tolerated. She denies chest pain, palpitations, or shortness of breath. Patient is a febrile. Patient is tolerating diet with no reports of nausea or vomiting noted. Patient to have an indwelling Dawson catheter removed and monitor for retention. Patient is tolerating diet and will discontinue IV fluids. BMP today is within normal limits. Potassium is 3.5. 06/23/2021 She is seen this morning currently sitting up in the chair with orthopedics following closely. Patient has been getting up with staff and will discontinue indwelling dawson catheter. Patient is on room air and denies any shortness of breath. Occasional dry cough which she states has had and is nothing new. Kelvin vuong to work with physical therapy and being arranged for home care on discharge. 06/24/2021 Patient is evaluated today and awaiting discharge from orthopedic services and will have close outpatient follow up along with home care and rehab. Patient to continue with covid vitamins and recommend continued IS use and follow up outpatient with pcp. Patient is stable for discharge. Review of systems: Constitutional: no reports of fatigue, no reports of fever, or chills Cardiovascular: No reports of chest pain or palpitations Respiratory: No reports of shortness of breath or cough GI: No reports of nausea, vomiting, or diarrhea : No reports of dysuria or retention Neurovascular: Reports generalized weakness, but improving All medications have been reviewed Physical exam: Gen: This is a 75-year-old female awake, alert and oriented 3, well-developed, well-nourished. HEENT: Head is atraumatic, normocephalic. Pupils equal, round. Sclerae is anicteric. NECK: Supple. No JVD. No lymphadenopathy. No thyromegaly. LUNGS: Diminished breath sounds bilaterally with no wheezing or rhonchi noted. No intercostal retractions. HEART: S1, S2 are muffled ABDOMEN: Soft. non-distended. Bowel sounds present. No masses. No tenderness. EXTREMITIES: No pedal edema. No calf tenderness. Left hip surgical site dressing is dry and intact NEUROLOGICAL: Patient is awake, alert and oriented x3. Cranial nerves 2 through 12 are grossly intact. Assessment: Status post left hip fracture fall Status post left hip hemiarthroplasty Recently diagnosed COVID-19 infection without any evidence of pneumonia or hypoxia Elevated d-dimer without evidence of PE on CT Mild lymphocytopenia Elevated random glucose Hypertension history of degenerative joint disease history of appendectomy history of cholecystectomy GI prophylaxis DVT prophylaxis Full code Plan: Recommend to continue with current medications and management. Patient underwent left hip hemiarthroplasty. Patient tolerating diet. Encouraged incentive spirometer at least 10 times every hour while awake. Recommend to continue with current medications. Following closely with orthopedics. Patient anticipates discharge today. Thank you for this consultation and will continue to follow during hospitalization. Objective - Vital Signs Vital signs: Vital Signs Temp 97.5 F L 06/24/21 05:34 Pulse 79 06/24/21 05:34 Resp 18 06/24/21 05:34 BP 148/73 06/24/21 05:34 Pulse Ox 96 06/24/21 05:34 Intake & Output 06/23/21 06/24/21 06/24/21 18:59 06:59 18:59 Intake Total 1000 Output Total 600 450 Balance -600 550 Intake: Oral 1000 Output: Urine 600 450 Other: # Voids 3 - Labs CBC & Chem 7: 06/23/21 05:48 06/22/21 06:08 Labs: Abnormal Lab Results - Last 24 Hours (Table) 06/23/21 Range/Units 05:48 RBC 3.46 L (4.10-5.20) X 10*6/uL Hgb 9.8 L (12.0-15.0) g/dL Hct 30.7 L (37.2-46.3) % MCHC 31.9 L (32.0-37.0) g/dL MPV 12.6 H (9.5-12.2) fL Immature Gran # 0.08 H (0.00-0.04) X 10*3/uL
== END 2021-06-24 15:56 | disposition home health service (06) | DRG 521 ==
LOC: EC 12:47 → 4SSUR 15:02
PROVIDERS: ADMIT Orthopaedic Surgery; ATTEND Orthopaedic Surgery
PROC: 0SRS0J9 Replacement of Left Hip Joint, Femoral Surface with Synthetic Substitute, Cemented, Open Approach (ICD-10-PCS; principal; 2021-06-20 17:00)
DX: S72.012A Unspecified intracapsular fracture of left femur, initial encounter for closed fracture (principal); U07.1 COVID-19; W10.9XXA Fall (on) (from) unspecified stairs and steps, initial encounter; D72.810 Lymphocytopenia; I10 Essential (primary) hypertension; M19.90 Unspecified osteoarthritis, unspecified site; Z90.49 Acquired absence of other specified parts of digestive tract; Z90.710 Acquired absence of both cervix and uterus; Z91.81 History of falling; Z88.1 Allergy status to other antibiotic agents
CPT/HCPCS: 71045; 71275; 73501; 73502; 80048; 80053; 81003; 82728; 83615; 84484; 85025; 85379; 85610; 85730; 86140; 86850; 86900; 86901; 87635; 88305; 88311; 93005; 93970; 96374; 96375; 99285